=== PATIENT | male | born 1980 | race Caucasian/White ===

== ENCOUNTER 2021-02-05 11:30 | Emergency (ER) | payer SELFPAY ==
[2021-02-05] MEDS ORDERED: Sodium Chloride 0.9% 10 ML Syringe FLUSH PRN (11:50)
[2021-02-05] MEDS ORDERED: Thiamine 200 MG/2 ML MDV IVPUSH ONE (11:50)
[2021-02-05] MEDS ORDERED: Ondansetron 4 MG/2 ML SDV IVPUSH ONE (11:51)
[2021-02-05] MEDS ORDERED: Lactated Ringers 1,000 ML IV ONE (11:51)
--- NOTE | 2021-02-05 11:59 | EDM.PDOC ---
ED HPI GENERAL MEDICAL PROBLEM - General Chief Complaint: Abdominal Pain Stated Complaint: need fluids, N&V Time Seen by Provider: 02/05/21 11:41 Source of Information: Reports: Patient - History of Present Illness INITIAL COMMENTS - FREE TEXT/NARRATIVE: Gerson is a 40 y/o male who presents himself to the ER reporting that he drove here from his home. He has been drinking hard liquor ([employer] Pedra[place]) heavily for the last 5 days. His last drink was at 0700 this AM. He then started drinking an oral Pedialyte solution that his fiance had gotten for him. He is nauseated and doesn't feel well. He has gone a heavy drinking binge in the past and had to go through withdrawal. He wants to stop drinking. He has not really eaten, stools slightly loose. - Related Data Allergies Allergy/AdvReac Type Severity Reaction Status Date / Time No Known Allergies Allergy Verified 02/05/21 11:31 Home Meds: Home Meds Ondansetron [Zofran ODT] 4 mg PO Q6H PRN #20 tab.dis 02/05/21 [Rx] hydrOXYzine pamoate [Hydroxyzine Pamoate] 50 mg PO Q6H PRN #30 capsule 02/05/21 [Rx] Past Medical History HEENT History: Reports: Impaired Vision Psychiatric History: Reports: Anxiety - Past Surgical History HEENT Surgical History: Reports: Oral Surgery Social & Family History - Tobacco Use Tobacco Use Status *Q: Current Every Day Tobacco User Years of Tobacco use: 20 Packs/Tins Daily: 1 - Caffeine Use Caffeine Use: Reports: Coffee - Alcohol Use Date of Last Drink: 02/05/21 Time of Last Drink: 07:00 Review of Systems - Review of Systems Review Of Systems: See Below Constitutional: Reports: Weakness Eyes: Reports: No Symptoms Ears: Reports: No Symptoms Nose: Reports: No Symptoms Mouth/Throat: Reports: No Symptoms Respiratory: Reports: No Symptoms Cardiovascular: Reports: No Symptoms GI/Abdominal: Reports: Decreased Appetite, Diarrhea, Nausea Genitourinary: Reports: No Symptoms Musculoskeletal: Reports: No Symptoms Skin: Reports: No Symptoms Neurological: Reports: Dizziness Psychiatric: Reports: Depression ED EXAM, GENERAL - Physical Exam Exam: See Below General Appearance: Alert, WD/WN (Adult male, ambualtes into the ER per his own power.) Eye Exam: Bilateral Eye: PERRL Ears: Normal External Exam, Normal Canal, Hearing Grossly Normal, Normal TMs Nose: Normal Inspection, Normal Mucosa Throat/Mouth: Normal Inspection, Normal Lips, Normal Oropharynx Head: Atraumatic, Normocephalic Neck: Supple Respiratory/Chest: No Respiratory Distress, Lungs Clear, Chest Non-Tender Cardiovascular: Normal Peripheral Pulses, Regular Rate, Rhythm GI/Abdominal: Normal Bowel Sounds, Soft, Tender (slight over gastric region) Rectal (Males) Exam: Deferred Back Exam: Normal Inspection Extremities: Normal Inspection, Normal Range of Motion, No Pedal Edema, Normal Capillary Refill Neurological: Alert, Oriented, CN II-XII Intact, Normal Cognition, Normal Gait Psychiatric: Depressed Mood Skin Exam: Warm, Dry, Intact, Normal Color Lymphatic: No Adenopathy #1 Interpretation EKG Date: 02/05/21 Time: 12:22 Rhythm: NSR Rate (Beats/Min): 70 [place]: Normal P-Wave: Present QRS: Normal ST-T: Normal QT: Normal Comparison: NA - No Prior EKG EKG Interpretation Comments: Normal Sinus Rhythm Course - Vital Signs Text/Narrative:: 1141 The patient was seen by the LABOR RELATIONS ANALYST. Labs ordered. He was given a liter of LR, Zofran 4mg IVP, and Thiamine 100mg IVP. 1250 Labs reviewed. CBC Hgb=17.5, Hct=50.8; CMP umhxvov=196, AST=42; Amylase=35, Fnhjbd=386: ETOH=0.159. UA/UDS pending. IV fluids infusing, feels very anxious and shaky. Will given Hydroxyzine pamoate 100mg po x 1 and see if that helps. Would rather avoid benzos since patient still intoxicated. 1410 Patient feeling much better after Hydroxyzine and fluids. UA and UDS reviewed. LABOR RELATIONS ANALYST discussed alcohol rehab with patient and warning sx of Alcohol Withdrawal. He was sent home Zofran and Hydroxyzine. He left the ER in stable condition after written instructions were given. Last Recorded V/S: Last Vital Signs Temp 36.8 C 02/05/21 11:32 Pulse 75 02/05/21 11:32 Resp 20 02/05/21 11:32 BP 131/71 02/05/21 11:32 Pulse Ox 97 02/05/21 11:32 - Orders/Labs/Meds Orders: Active Orders 24 hr Category Date Time Status EKG Documentation Completion [RC] ASDIRECTED Care 02/05/21 11:50 Active DRUG SCREEN, URINE [URCHEM] Stat Lab 02/05/21 11:49 Ordered UA W/MICROSCOPIC [URIN] Stat Lab 02/05/21 11:49 Results Sodium Chloride 0.9% [Saline Flush] Med 02/05/21 11:50 Active 10 ml FLUSH ASDIRECTED PRN Saline Lock Insert [OM.PC] Stat Oth 02/05/21 11:49 Ordered Medication Orders Sodium Chloride (Sodium Chloride 0.9% 10 Ml Syringe) 10 ml FLUSH ASDIRECTED PRN PRN Reason: Keep Vein Open Labs: Laboratory Tests 02/05/21 02/05/21 02/05/21 Range/Units 11:40 11:40 11:49 WBC 8.6 (4.0-10.2) K/uL RBC 5.59 H (4.33-5.41) M/uL Hgb 17.5 H (13.1-16.8) g/dL Hct 50.8 H (39.0-49.0) % MCV 90.9 (84.0-98.0) fL MCH 31.3 (28.2-33.3) pg MCHC 34.4 (31.7-36.0) g/dL RDW 13.0 (11.2-14.1) % Plt Count 224 (150-350) K/uL Neut % (Auto) 72.0 (45.0-80.0) % Lymph % (Auto) 20.5 (10.0-50.0) % [place] % (Auto) 6.2 (2.0-14.0) % Eos % (Auto) 0.5 (0.0-5.0) % Baso % (Auto) 0.8 (0.0-2.0) % Neut # (Auto) 6.19 (1.40-7.00) K/uL Lymph # (Auto) 1.76 (0.50-3.50) K/uL [place] # (Auto) 0.53 (0.00-1.00) K/uL Eos # (Auto) 0.04 (0.00-0.50) K/uL Baso # (Auto) 0.07 (0.00-0.20) K/uL Sodium 143 (136-145) mmol/L Potassium 4.0 (3.5-5.1) mmol/L Chloride 103 (98-107) mmol/L Carbon Dioxide 28.0 (21.0-32.0) mmol/L Anion Gap 12.0 (7-15) meq/L BUN 12 (7-18) mg/dL Creatinine 1.11 (0.51-1.17) mg/dL Est Cr Clr Drug Dosing TNP Estimated GFR (MDRD) > 60 mL/min Glucose 128 H (70-99) mg/dL Calcium 8.5 (8.5-10.1) mg/dL Magnesium 1.8 (1.8-2.4) mg/dL Total Bilirubin 0.4 (0.2-1.0) mg/dL AST 42 H (15-37) U/L ALT 50 (12-78) U/L Alkaline Phosphatase 129 H (46-116) IU/L Total Protein 7.4 (6.4-8.2) g/dL Albumin 4.2 (3.4-5.0) g/dL Amylase 35 (25-115) U/L Lipase 148 (73-393) U/L Urine Color Dark yellow Urine Appearance Slightly cloudy Urine pH 6.0 (5.0-9.0) Ur Specific [place] >= 1.030 (1.005-1.030) Urine Protein 100 H (NEGATIVE) mg/dL Urine Glucose (UA) Negative (NEGATIVE) mg/dL Urine Ketones 40 H (NEGATIVE) mg/dL Urine Occult Blood Trace-lysed H (NEGATIVE) Urine Nitrite Negative (NEGATIVE) Urine Bilirubin Negative (NEGATIVE) Urine Urobilinogen 0.2 (0.2-1.0) E.U./dL Ur Leukocyte Esterase Negative (NEGATIVE) Ethyl Alcohol 0.159 H (0.000-0.080) g/dL Meds: Medications Generic Name Dose Route Start Last Admin Trade Name Freq PRN Reason Stop Dose Admin Sodium Chloride 10 ml 02/05/21 11:50 Sodium Chloride 0.9% 10 Ml Syringe FLUSH ASDIRECTED PRN Keep Vein Open Discontinued Medications Generic Name Dose Route Start Last Admin Trade Name Freq PRN Reason Stop Dose Admin Hydroxyzine Pamoate 100 mg 02/05/21 12:52 02/05/21 12:59 Hydroxyzine Pamoate 25 Mg Cap PO 02/05/21 12:53 100 mg ONETIME ONE Administration Lactated Ringer's 1,000 mls @ 999 mls/hr 02/05/21 11:51 02/05/21 11:58 Ringers, Lactated IV 02/05/21 12:51 999 mls/hr .BOLUS ONE Administration Sodium Chloride 1,000 mls @ 999 mls/hr 02/05/21 12:52 02/05/21 13:05 Normal Saline IV 02/05/21 13:52 999 mls/hr .BOLUS ONE Administration Ondansetron HCl 4 mg 02/05/21 11:51 02/05/21 11:57 Ondansetron 4 Mg/2 Ml Sdv IVPUSH 02/05/21 11:52 4 mg ONETIME ONE Administration Thiamine HCl 100 mg 02/05/21 11:50 02/05/21 11:57 Thiamine 200 Mg/2 Ml Mdv IVPUSH 02/05/21 11:51 100 mg ONETIME ONE Administration Departure - Departure Time of Disposition: 14:21 Disposition: Home, Self-Care 01 Condition: Good Clinical Impression: Cocaine use Acute alcoholic intoxication in alcoholism (blood level 0.08-0.29) Qualifiers: Complication of substance-induced condition: uncomplicated Qualified Code(s): F10.220 - Alcohol dependence with intoxication, uncomplicated - Discharge Information *PRESCRIPTION DRUG MONITORING PROGRAM REVIEWED*: No *COPY OF PRESCRIPTION DRUG MONITORING REPORT IN PATIENT MORRIS: No Prescriptions: hydrOXYzine pamoate [Hydroxyzine Pamoate] 50 mg PO Q6H PRN #30 capsule PRN Reason: Anxiety Ondansetron [Zofran ODT] 4 mg PO Q6H PRN #20 tab.dis PRN Reason: Nausea Instructions: Alcohol Abuse and Dependence Information, Adult Referrals: PCP,None [Primary Care Provider] - Forms: ED Department Discharge Additional Instructions: -STOP DRINKING ALCOHOL. If you start drinking again, the process of getting sober and withdrawing starts over. -STOP using Cocaine. -Hydroxyzine 50mg oral every 6 hours as needed for anxiety #30(Rx) -Ondanestron ODT 4mg oral every 6 hours as needed for nasuea #20(Rx) -Consider getting into rehab to stop drinking -Eat a hearty meal. Avoid spicy, greasy foods that may irritate your stomach even more. -Stay well hydrated. -Follow up with your Primary Care Provider for further issues when you are sober. -Return as needed to the ER for any other concerns Sepsis Event Note (ED) - Focused Exam Vital Signs: Vital Signs Temp Pulse Resp BP Pulse Ox 02/05/21 11:32 36.8 C 75 20 131/71 97 - Problem List & Annotations (1) Acute alcoholic intoxication in alcoholism (blood level 0.08-0.29) SNOMED Code(s): 143677398 Code(s): F10.229 - ALCOHOL DEPENDENCE WITH INTOXICATION, UNSPECIFIED Status: Acute Current Visit: Yes Annotation/Comment:: -ETOH=0.159, currently intoxicated -Hydroxyzine and Zofran to be sent home for sx management -Discussed alcohol withdrawal with patient Qualifiers: Complication of substance-induced condition: uncomplicated Qualified Code(s): F10.220 - Alcohol dependence with intoxication, uncomplicated (2) Cocaine use SNOMED Code(s): 733980297 Code(s): F14.90 - COCAINE USE, UNSPECIFIED, UNCOMPLICATED Status: Acute Current Visit: Yes Annotation/Comment:: -UDS positive for Cocaine, results reviewed following discharge but suspect this factor exacerbated the alcohol sx - My Orders Last 24 Hours: My Active Orders 02/05/21 11:49 DRUG SCREEN, URINE [URCHEM] Stat UA W/MICROSCOPIC [URIN] Stat Saline Lock Insert [OM.PC] Stat 02/05/21 11:50 EKG Documentation Completion [RC] ASDIRECTED Sodium Chloride 0.9% [Saline Flush] 10 ml FLUSH ASDIRECTED PRN - Assessment/Plan Last 24 Hours: My Active Orders 02/05/21 11:49 DRUG SCREEN, URINE [URCHEM] Stat UA W/MICROSCOPIC [URIN] Stat Saline Lock Insert [OM.PC] Stat 02/05/21 11:50 EKG Documentation Completion [RC] ASDIRECTED Sodium Chloride 0.9% [Saline Flush] 10 ml FLUSH ASDIRECTED PRN Plan: See below
[2021-02-05 12:18] LABS: CHLORIDE,CL 103 mmol/L (98-107); SODIUM,NA 143 mmol/L (136-145)
[2021-02-05] MEDS ORDERED: Sodium Chloride 0.9% 1,000 ML IV ONE (12:52)
[2021-02-05] MEDS ORDERED: hydrOXYzine Pamoate 25 MG Cap PO ONE (12:52)
[2021-02-05 14:06] LABS: BARBITURATE SCREEN,URINE NEGATIVE (NEGATIVE); BENZODIAZEPINES SCREEN,URINE NEGATIVE (NEGATIVE); EDDP,URINE SCREEN NEGATIVE (NEGATIVE); TCA SCREEN,URINE NEGATIVE (NEGATIVE); THC SCREEN,URINE 50 NG/ML NEGATIVE (NEGATIVE)
[2021-02-05 14:28] LABS: BUPRENORPHINE SCREEN,URINE NEGATIVE (NEGATIVE)
== END 2021-02-05 14:35 | disposition home or self-care (01) ==
LOC: LL.ED 11:30
DX: F10.220 Alcohol dependence with intoxication, uncomplicated (principal); F14.90 Cocaine use, unspecified, uncomplicated; Y90.6 Blood alcohol level of 120-199 mg/100 ml; Z72.0 Tobacco use
CPT/HCPCS: 36415; 80053; 80305-QW; 80307; 81001; 82150; 83690; 83735; 85025; 93005; 93010; 96374; 96375; 99283; 99284-25; J2405; J3411; J7030; J7120; Q0177

== ENCOUNTER 2021-03-06 17:55 | Emergency (ER) | payer SELFPAY ==
[2021-03-06] MEDS ORDERED: Pantoprazole 40 MG in Sodium Chloride 0.9% 100 ML IV ONE (18:19)
[2021-03-06] MEDS ORDERED: Promethazine 25 MG/ML SDV IM ONE (18:19)
[2021-03-06] MEDS ORDERED: Pantoprazole 40 MG Vial ONE (18:21)
[2021-03-06] MEDS ORDERED: Promethazine 25 MG/ML SDV ONE (18:21)
[2021-03-06] MEDS ORDERED: Pantoprazole 40 MG Vial IVPUSH ONE (18:33)
[2021-03-06] MEDS ORDERED: Sodium Chloride 0.9% 1,000 ML IV ONE ×2 (18:34→19:30)
[2021-03-06] MEDS ORDERED: Sodium Chloride 0.9% 10 ML Syringe FLUSH PRN (18:34)
[2021-03-06] MEDS ORDERED: GI Cocktail Oral Solution 30 ML PO ONE (18:39)
[2021-03-06 18:46] LABS: ANION GAP 22.7 meq/L (7-15); CHLORIDE,CL 103 mmol/L (98-107); SODIUM,NA 142 mmol/L (136-145)
--- NOTE | 2021-03-06 18:59 | EDM.PDOC ---
ED HPI GENERAL MEDICAL PROBLEM - General Chief Complaint: General Stated Complaint: abdominal pain, vomiting Time Seen by Provider: 03/06/21 18:15 Source of Information: Reports: Patient History Limitations: Reports: No Limitations - History of Present Illness INITIAL COMMENTS - FREE TEXT/NARRATIVE: Patient comes in for assistance for nausea/vomiting/epigastric pain related to acute ETOH intoxication yesterday. Has history of ETOH abuse that started in his 20s. Has not had any alcohol for an entire month per self report. Reports he had several pints of hard liquor last evening in total. Is trying to stop his alcohol use. Has not had any inpatient treatment or outpatient evaluations for ETOH use. Family history of ETOH/father. Has not reached out to AA. Denies blood in emesis. No bowel movements today as of yet. Was trying to drink Pedialyte at home but felt gradually worse throughout day. No other acute changes. abdominal pain Pain Score (Numeric/FACES): 8 - Related Data Allergies Allergy/AdvReac Type Severity Reaction Status Date / Time No Known Allergies Allergy Verified 03/06/21 17:56 Home Meds: Home Meds hydrOXYzine pamoate [Hydroxyzine Pamoate] 50 mg PO Q6H PRN #30 capsule 02/05/21 [Rx] Omeprazole Magnesium [Prilosec Otc] 20 mg PO DAILY 03/06/21 [History] ondansetron HCL [Zofran] 4 mg PO Q4HR PRN 03/06/21 [History] Past Medical History HEENT History: Reports: Impaired Vision Psychiatric History: Reports: Addiction (ETOH), Anxiety - Past Surgical History HEENT Surgical History: Reports: Oral Surgery Social & Family History - Tobacco Use Tobacco Use Status *Q: Current Every Day Tobacco User - Caffeine Use Caffeine Use: Reports: Coffee - Alcohol Use Alcohol Use History: Yes Alcohol Use Comment: Reports zero use of ETOH for an entire month up until yesterday - Recreational Drug Use Recreational Drug Use: No ED ROS GENERAL - Review of Systems Review Of Systems: Comprehensive ROS is negative, except as noted in HPI. ED EXAM, GENERAL - Physical Exam Exam: See Below Exam Limited By: No Limitations General Appearance: Moderate Distress Eye Exam: Bilateral Eye: EOMI, PERRL Ears: Normal External Exam, Normal Canal, Hearing Grossly Normal Nose: No: Nasal Deformity, Nasal Swelling, Nasal Drainage Throat/Mouth: Normal Lips, Normal Voice, No Airway Compromise Head: Atraumatic, Normocephalic Neck: Normal Inspection, Supple, Non-Tender, Full Range of Motion Respiratory/Chest: No Respiratory Distress, Lungs Clear, Normal Breath Sounds, No Accessory Muscle Use, Chest Non-Tender Cardiovascular: Regular Rate, Rhythm, No Edema, No Murmur GI/Abdominal: Soft, No Distention, Tender (epigastric area) (Male) Exam: Deferred Rectal (Males) Exam: Deferred Back Exam: No: CVA Tenderness (L), CVA Tenderness (R), Muscle Spasm Extremities: Normal Range of Motion, Non-Tender, No Pedal Edema, Slow Capillary Refill Neurological: Alert, Oriented, Normal Cognition, Normal Gait, No Motor/Sensory Deficits Psychiatric: Anxious Skin Exam: Warm, Dry, Intact, Normal Color, No Rash Course - Vital Signs Last Recorded V/S: Last Vital Signs Temp 36.3 C 03/06/21 21:50 Pulse 63 03/06/21 21:50 Resp 16 03/06/21 21:50 BP 140/74 03/06/21 21:50 Pulse Ox 97 03/06/21 21:50 - Orders/Labs/Meds Orders: Active Orders 24 hr Category Date Time Status Saline Lock Insert [OM.PC] Routine Oth 03/06/21 18:34 Ordered Labs: Laboratory Tests 03/06/21 03/06/21 03/06/21 Range/Units 18:20 18:20 18:20 WBC 9.4 (4.0-10.2) K/uL RBC 5.99 H (4.33-5.41) M/uL Hgb 18.5 H* (13.1-16.8) g/dL Hct 51.9 H (39.0-49.0) % MCV 86.6 D (84.0-98.0) fL MCH 30.9 (28.2-33.3) pg MCHC 35.6 (31.7-36.0) g/dL RDW 12.3 (11.2-14.1) % Plt Count 232 (150-350) K/uL Neut % (Auto) 65.9 (45.0-80.0) % Lymph % (Auto) 24.8 (10.0-50.0) % [place] % (Auto) 7.7 (2.0-14.0) % Eos % (Auto) 1.0 (0.0-5.0) % Baso % (Auto) 0.6 (0.0-2.0) % Neut # (Auto) 6.16 (1.40-7.00) K/uL Lymph # (Auto) 2.32 (0.50-3.50) K/uL [place] # (Auto) 0.72 (0.00-1.00) K/uL Eos # (Auto) 0.09 (0.00-0.50) K/uL Baso # (Auto) 0.06 (0.00-0.20) K/uL Sodium 142 (136-145) mmol/L Potassium 3.9 (3.5-5.1) mmol/L Chloride 103 (98-107) mmol/L Carbon Dioxide 20.2 L (21.0-32.0) mmol/L Anion Gap 22.7 H (7-15) meq/L BUN 21 H (7-18) mg/dL Creatinine 1.09 (0.51-1.17) mg/dL Est Cr Clr Drug Dosing TNP Estimated GFR (MDRD) > 60 mL/min Glucose 91 (70-99) mg/dL Lactic Acid 2.8 H (0.4-2.0) mmol/L Calcium 8.6 (8.5-10.1) mg/dL Total Bilirubin 0.4 (0.2-1.0) mg/dL AST 50 H (15-37) U/L ALT 104 H (12-78) U/L Alkaline Phosphatase 104 (46-116) IU/L Total Protein 7.2 (6.4-8.2) g/dL Albumin 3.9 (3.4-5.0) g/dL Urine Opiates Screen (NEGATIVE) Ur Buprenorphine Scrn (NEGATIVE) Ur Oxycodone Screen (NEGATIVE) Ur EDDP (Meth Metab) (NEGATIVE) Ur Barbiturates Screen (NEGATIVE) Ur Tricyclics Screen (NEGATIVE) Ur Amphetamine Screen (NEGATIVE) U Methamphetamines Scrn (NEGATIVE) Urine MDMA Screen (NEGATIVE) U Benzodiazepines Scrn (NEGATIVE) U Cocaine Metab Screen (NEGATIVE) U Marijuana (THC) Screen (NEGATIVE) Ethyl Alcohol 0.020 (0.000-0.080) g/dL 03/06/21 Range/Units 20:45 WBC (4.0-10.2) K/uL RBC (4.33-5.41) M/uL Hgb (13.1-16.8) g/dL Hct (39.0-49.0) % MCV (84.0-98.0) fL MCH (28.2-33.3) pg MCHC (31.7-36.0) g/dL RDW (11.2-14.1) % Plt Count (150-350) K/uL Neut % (Auto) (45.0-80.0) % Lymph % (Auto) (10.0-50.0) % [place] % (Auto) (2.0-14.0) % Eos % (Auto) (0.0-5.0) % Baso % (Auto) (0.0-2.0) % Neut # (Auto) (1.40-7.00) K/uL Lymph # (Auto) (0.50-3.50) K/uL [place] # (Auto) (0.00-1.00) K/uL Eos # (Auto) (0.00-0.50) K/uL Baso # (Auto) (0.00-0.20) K/uL Sodium (136-145) mmol/L Potassium (3.5-5.1) mmol/L Chloride (98-107) mmol/L Carbon Dioxide (21.0-32.0) mmol/L Anion Gap (7-15) meq/L BUN (7-18) mg/dL Creatinine (0.51-1.17) mg/dL Est Cr Clr Drug Dosing Estimated GFR (MDRD) mL/min Glucose (70-99) mg/dL Lactic Acid (0.4-2.0) mmol/L Calcium (8.5-10.1) mg/dL Total Bilirubin (0.2-1.0) mg/dL AST (15-37) U/L ALT (12-78) U/L Alkaline Phosphatase (46-116) IU/L Total Protein (6.4-8.2) g/dL Albumin (3.4-5.0) g/dL Urine Opiates Screen Negative (NEGATIVE) Ur Buprenorphine Scrn Negative (NEGATIVE) Ur Oxycodone Screen Negative (NEGATIVE) Ur EDDP (Meth Metab) Negative (NEGATIVE) Ur Barbiturates Screen Negative (NEGATIVE) Ur Tricyclics Screen Negative (NEGATIVE) Ur Amphetamine Screen Negative (NEGATIVE) U Methamphetamines Scrn Negative (NEGATIVE) Urine MDMA Screen Positive H (NEGATIVE) U Benzodiazepines Scrn Negative (NEGATIVE) U Cocaine Metab Screen Negative (NEGATIVE) U Marijuana (THC) Screen Negative (NEGATIVE) Ethyl Alcohol (0.000-0.080) g/dL Meds: Medications Discontinued Medications Generic Name Dose Route Start Last Admin Trade Name Freq PRN Reason Stop Dose Admin Al Hydroxide/Mg Hydroxide 30 ml 03/06/21 18:39 03/06/21 19:21 Gi Cocktail Oral Solution 30 Ml PO 03/06/21 18:40 30 ml ONETIME ONE Administration Pantoprazole Sodium 40 mg/ 100 mls @ 200 mls/hr 03/06/21 18:19 03/06/21 18:33 Sodium Chloride IV 03/06/21 18:48 Not Given ONETIME ONE Sodium Chloride 1,000 mls @ 999 mls/hr 03/06/21 18:34 03/06/21 19:21 Normal Saline IV 03/06/21 19:34 999 mls/hr .BOLUS ONE Administration Sodium Chloride 1,000 mls @ 999 mls/hr 03/06/21 19:30 03/06/21 19:22 Normal Saline IV 03/06/21 20:30 999 mls/hr .BOLUS ONE Administration Ondansetron HCl 4 mg 03/06/21 20:30 03/06/21 19:22 Ondansetron 4 Mg/2 Ml Sdv IVPUSH 03/06/21 20:31 4 mg ONETIME ONE Administration Ondansetron HCl 4 mg 03/06/21 20:38 03/06/21 20:42 Ondansetron 4 Mg/2 Ml Sdv IVPUSH 03/06/21 20:39 4 mg ONETIME ONE Administration Pantoprazole Sodium Confirm 03/06/21 18:21 03/06/21 18:36 Pantoprazole 40 Mg Vial Administered 03/06/21 18:22 Not Given Dose 40 mg .ROUTE .STK-MED ONE Pantoprazole Sodium 40 mg 03/06/21 18:33 03/06/21 18:36 Pantoprazole 40 Mg Vial IVPUSH 03/06/21 18:34 40 mg ONETIME ONE Administration Promethazine HCl 25 mg 03/06/21 18:19 03/06/21 18:36 Promethazine 25 Mg/Ml Sdv IM 03/06/21 18:20 25 mg ONETIME ONE Administration Promethazine HCl Confirm 03/06/21 18:21 03/06/21 18:36 Promethazine 25 Mg/Ml Sdv Administered 03/06/21 18:22 Not Given Dose 25 mg .ROUTE .STK-MED ONE Sodium Chloride 10 ml 03/06/21 18:34 03/06/21 20:42 Sodium Chloride 0.9% 10 Ml Syringe FLUSH 10 ml ASDIRECTED PRN Administration Keep Vein Open Thiamine HCl 100 mg 03/06/21 20:37 03/06/21 20:41 Thiamine 200 Mg/2 Ml Mdv IVPUSH 03/06/21 20:38 100 mg ONETIME ONE Administration - Re-Assessments/Exams Free Text/Narrative Re-Assessment/Exam: 03/06/21 19:03 Patient received IM Phenergan. 2 L of IV NS ordered to be given over 2 hours. GI cocktail ordered. Hgb elevated at 18.8. Suspect combo of dehydration and history of smoking leading to elevation BUN 21 AST 50 and ALT 104 ETOH 0.02 Patient reports he is feeling much better at this time. Plan is to infuse two liters of fluid and give Zofran once second liter is finished. Patient can be discharged home at that time if he continues to feel better. Long visit with patient concerning ETOH use and getting help via AA and ETOH counselor/treatment referral. Patient is interested in getting assistance. Will have case management contact patient tomorrow and help get him connected with assistance. Precautions reviewed. To follow up as needed if any problems/worsening issues develop. Otherwise should follow up with a primary provider in the area that can assist him with health maintenance and any other ongoing concerns. 03/06/21 22:33 UA Drug screen + for MDMA Patient felt much improved at time of discharge. Departure - Departure Time of Disposition: 20:45 Disposition: Home, Self-Care 01 Clinical Impression: ETOH abuse, Liver enzyme elevation, Dehydration N&V (nausea and vomiting) Qualifiers: Vomiting type: unspecified Vomiting Intractability: non-intractable Qualified Code(s): R11.2 - Nausea with vomiting, unspecified - Discharge Information *PRESCRIPTION DRUG MONITORING PROGRAM REVIEWED*: Not Applicable *COPY OF PRESCRIPTION DRUG MONITORING REPORT IN PATIENT MORRIS: Not Applicable Instructions: Alcohol Use Disorder, Nausea and Vomiting, Adult, [id number], Dehydration, Adult, [id number] Referrals: Gita Felix NP [Primary Care Provider] - Forms: ED Department Discharge Additional Instructions: You NEED to make contact with AA and a substance abuse counselor so you can get pointed in correct direction and get proper support. You may need to consider inpatient vs outpatient treatment. Our case mgr will contact you and try to assist if she can. Avoid any and all alcohol use. Stay hydrated/rest. Advance diet as tolerated tomorrow. Get established with a local clinic for ongoing medical care. Follow up in ER if you have sudden problems, such as vomiting blood. Sepsis Event Note (ED) - Focused Exam Vital Signs: Vital Signs Temp Pulse Resp BP Pulse Ox 03/06/21 21:50 36.3 C 63 16 140/74 97 03/06/21 17:55 36.1 C 60 20 143/86 H 98 - My Orders Last 24 Hours: My Active Orders 03/06/21 18:34 Saline Lock Insert [OM.PC] Routine - Assessment/Plan Last 24 Hours: My Active Orders 03/06/21 18:34 Saline Lock Insert [OM.PC] Routine
[2021-03-06] MEDS ORDERED: Thiamine 100 MG in Sodium Chloride 0.9% 100 ML IV ONE (19:18)
[2021-03-06] MEDS ORDERED: Ondansetron 4 MG/2 ML SDV IVPUSH ONE ×2 (20:30→20:38)
[2021-03-06] MEDS ORDERED: Thiamine 200 MG/2 ML MDV IVPUSH ONE (20:37)
[2021-03-06 22:13] LABS: BARBITURATE SCREEN,URINE NEGATIVE (NEGATIVE); BENZODIAZEPINES SCREEN,URINE NEGATIVE (NEGATIVE); EDDP,URINE SCREEN NEGATIVE (NEGATIVE); TCA SCREEN,URINE NEGATIVE (NEGATIVE); THC SCREEN,URINE 50 NG/ML NEGATIVE (NEGATIVE)
[2021-03-06 22:16] LABS: BUPRENORPHINE SCREEN,URINE NEGATIVE (NEGATIVE)
== END 2021-03-06 20:58 | disposition home or self-care (01) ==
LOC: LL.ED 17:55
DX: R11.2 Nausea with vomiting, unspecified (principal); R10.13 Epigastric pain; E86.0 Dehydration; F10.10 Alcohol abuse, uncomplicated; R74.8 Abnormal levels of other serum enzymes; Y90.5 Blood alcohol level of 100-119 mg/100 ml
CPT/HCPCS: 36415; 80053; 80305; 80307; 83605; 85025; 96372; 96374; 96375; 96376; 99284; A9270; C9113; J2405; J2550; J3411; J7030

== ENCOUNTER 2022-07-28 06:14 | Emergency (ER) | payer BC, OTHER ==
[2022-07-28] MEDS ORDERED: LORazepam 2 MG/ML SDV IVPUSH ONE (06:27)
[2022-07-28] MEDS ORDERED: Sodium Chloride 0.9% 10 ML Syringe FLUSH PRN (06:27)
[2022-07-28] MEDS ORDERED: Sodium Chloride 0.9% 1,000 ML IV ONE ×2 (06:28→07:32)
[2022-07-28] MEDS ORDERED: Ondansetron 4 MG/2 ML SDV IVPUSH ONE (06:29)
[2022-07-28] MEDS ORDERED: Thiamine 100 MG in Sodium Chloride 0.9% 100 ML IV ONE (06:58)
[2022-07-28] MEDS ORDERED: Promethazine 25 MG/ML SDV IM ONE (06:59)
[2022-07-28 07:14] LABS: ANION GAP 14.5 meq/L (7-15); CHLORIDE,CL 101 mmol/L (98-107); SODIUM,NA 138 mmol/L (136-145)
[2022-07-28 07:18] LABS: ESTIMATED GFR 98 mL/min (>=60)
[2022-07-28 07:50] LABS: BARBITURATE SCREEN,URINE NEGATIVE (NEGATIVE); BENZODIAZEPINES SCREEN,URINE NEGATIVE (NEGATIVE); EDDP,URINE SCREEN NEGATIVE (NEGATIVE); TCA SCREEN,URINE NEGATIVE (NEGATIVE); THC SCREEN,URINE 50 NG/ML NEGATIVE (NEGATIVE)
[2022-07-28 07:51] LABS: BUPRENORPHINE SCREEN,URINE NEGATIVE (NEGATIVE)
[2022-07-28] MEDS ORDERED: Lactated Ringers 1,000 ML IV ONE (10:30)
[2022-07-28 11:51] VITALS: BP 125/83; PULSE 64
[2022-07-28] MEDS ORDERED: LORazepam 0.5 MG Tab PO ONE (12:30)
== END 2022-07-28 12:50 | disposition home or self-care (01) ==
LOC: LL.ED 06:14
DX: F11.23 Opioid dependence with withdrawal (principal); F10.10 Alcohol abuse, uncomplicated; Z72.0 Tobacco use
CPT/HCPCS: 36415; 71045; 80053; 80143; 80305-QW; 80307; 81001; 83605; 83735; 85025; 93005; 93010; 96361; 96365; 96375; 99284; 99284-25; A9270-GY; J2060; J2405; J3411; J3475; J3490; J7030; J7120

== ENCOUNTER 2022-08-09 08:33 | Emergency (ER) | payer BC ==
[2022-08-09] MEDS ORDERED: Ondansetron 4 MG/2 ML SDV IVPUSH PRN (08:45)
[2022-08-09] MEDS ORDERED: Sodium Chloride 0.9% 10 ML Syringe FLUSH PRN (08:45)
[2022-08-09] MEDS ORDERED: Sodium Chloride 0.9% 1,000 ML IV ONE ×2 (08:46→10:00)
[2022-08-09 09:20] LABS: CHLORIDE,CL 102 mmol/L (98-107); SODIUM,NA 140 mmol/L (136-145)
[2022-08-09 09:21] LABS: ESTIMATED GFR 95 mL/min (>=60)
[2022-08-09 10:20] LABS: BARBITURATE SCREEN,URINE NEGATIVE (NEGATIVE); BENZODIAZEPINES SCREEN,URINE NEGATIVE (NEGATIVE); EDDP,URINE SCREEN NEGATIVE (NEGATIVE); TCA SCREEN,URINE NEGATIVE (NEGATIVE); THC SCREEN,URINE 50 NG/ML NEGATIVE (NEGATIVE)
[2022-08-09 10:23] LABS: BUPRENORPHINE SCREEN,URINE NEGATIVE (NEGATIVE)
[2022-08-09 10:24] LABS: CORONAVIRUS COVID-19 NAA NEGATIVE (NEGATIVE); RESPIRATORY SYNCYTIAL VIR NAA NEGATIVE (NEGATIVE)
[2022-08-09] MEDS ORDERED: Take Home: Ondansetron 4 MG Tab.DIS, 5 Tab Pack PO ONE (12:00)
== END 2022-08-09 12:15 | disposition home or self-care (01) ==
LOC: SUPCPDRO 08:33 → LL.ED 08:33
DX: F10.930 Alcohol use, unspecified with withdrawal, uncomplicated (principal); F17.210 Nicotine dependence, cigarettes, uncomplicated; Z20.822 Contact with and (suspected) exposure to COVID-19; Y90.0 Blood alcohol level of less than 20 mg/100 ml
CPT/HCPCS: 0241U; 36415; 71046; 80053; 80305-QW; 80307; 81001; 83690; 83735; 85025; 87086; 93005; 96361; 96374; 99285-25; J2405; J7030; Q0162

== ENCOUNTER 2023-01-03 19:02 | Emergency (ER) | payer BC ==
[2023-01-03 19:37] LABS: BASOPHILS ABSOLUTE AUTO 0.07 K/uL (0.00-0.20); BASOPHILS PERCENT AUTO 0.7 % (0.0-2.0); EOSINOPHILS ABSOLUTE AUTO 0.12 K/uL (0.00-0.50); EOSINOPHILS PERCENT AUTO 1.1 % (0.0-5.0); HEMATOCRIT 47.6 % (39.0-49.0); HEMOGLOBIN 16.2 g/dL (13.1-16.8); LYMPHOCYTES ABSOLUTE AUTO 2.27 K/uL (0.50-3.50); LYMPHOCYTES PERCENT AUTO 21.3 % (10.0-50.0); MEAN CORPUSCULAR HEMOGLOBIN 30.9 pg (28.2-33.3); MEAN CORPUSCULAR VOLUME 90.8 fL (84.0-98.0); MONOCYTES ABSOLUTE AUTO 0.68 K/uL (0.00-1.00); MONOCYTES PERCENT AUTO 6.4 % (2.0-14.0); NEUTROPHILS PERCENT AUTO 70.5 % (45.0-80.0); PLATELET COUNT,PLT 210 K/uL (150-350); RED BLOOD CELL COUNT 5.24 M/uL (4.33-5.41); RED CELL DISTRIBUTION WIDTH 12.9 % (11.2-14.1); WHITE BLOOD CELL COUNT,WBC 10.6 K/uL (4.0-10.2)
[2023-01-03] MEDS: Sodium Chloride 0.9% 1,000 ML IV ONE (19:52)
[2023-01-03] MEDS: Ondansetron 4 MG/2 ML SDV IVPUSH PRN (19:56)
[2023-01-03 19:58] LABS: ALBUMIN 4.1 g/dL (3.4-5.0); BILIRUBIN TOTAL 0.5 mg/dL (0.2-1.0); CALCIUM 8.5 mg/dL (8.5-10.1); CREATININE 1.06 mg/dL (0.51-1.17); EST CRCL DRUG DOSING (CG) 97.08 mL/min; PROTEIN TOTAL,TP 7.2 g/dL (6.4-8.2)
[2023-01-03] MEDS: Sodium Chloride 0.9% 10 ML Syringe FLUSH PRN (19:58)
[2023-01-03] MEDS: Morphine 2 MG/ML SYRINGE IVPUSH ONE (19:59)
[2023-01-03] MEDS: Folic Acid 1 MG Tab PO ONE (20:10)
[2023-01-03] MEDS: Thiamine 100 MG in Sodium Chloride 0.9% 100 ML IV ONE (20:11)
[2023-01-03] MEDS: Magnesium Sulfate/Water 2 GM in Premix Bag 1 BAG IV ONE (20:48)
[2023-01-03] MEDS: Take Home: Ondansetron 4 MG Tab.DIS, 5 Tab Pack PO ONE (22:53)
== END 2023-01-03 23:05 | disposition home or self-care (01) ==
LOC: LL.ED 19:02
DX: E86.0 Dehydration (principal)
CPT/HCPCS: 36415; 80053; 85025; 96365; 96366; 96367; 96375; 99284; 99284-25; A9270-GY; J2270; J2405; J3411; J3475; J3490; J7030; Q0162

== ENCOUNTER 2023-01-10 19:42 | Emergency (ER) | payer BC ==
[2023-01-10] MEDS ORDERED: Ondansetron 4 MG/2 ML SDV IVPUSH PRN (19:44)
[2023-01-10] MEDS ORDERED: Sodium Chloride 0.9% 10 ML Syringe FLUSH PRN (19:44)
[2023-01-10] MEDS ORDERED: Sodium Chloride 0.9% 1,000 ML IV ONE (19:44)
[2023-01-10] MEDS ORDERED: cefTRIAXone 2 GM in Sodium Chloride 0.9% 100 ML IV ONE (19:52)
[2023-01-10] MEDS ORDERED: Take Home: Ondansetron 4 MG Tab.DIS, 5 Tab Pack PO ONE (19:53)
[2023-01-10 20:00] LABS: BASOPHILS ABSOLUTE AUTO 0.07 K/uL (0.00-0.20); BASOPHILS PERCENT AUTO 0.9 % (0.0-2.0); EOSINOPHILS ABSOLUTE AUTO 0.18 K/uL (0.00-0.50); EOSINOPHILS PERCENT AUTO 2.4 % (0.0-5.0); HEMATOCRIT 46.8 % (39.0-49.0); HEMOGLOBIN 16.1 g/dL (13.1-16.8); LYMPHOCYTES ABSOLUTE AUTO 2.93 K/uL (0.50-3.50); LYMPHOCYTES PERCENT AUTO 38.8 % (10.0-50.0); MEAN CORPUSCULAR HGB CONC 34.4 g/dL (31.7-36.0); MONOCYTES ABSOLUTE AUTO 0.62 K/uL (0.00-1.00); MONOCYTES PERCENT AUTO 8.2 % (2.0-14.0); NEUTROPHILS ABSOLUTE AUTO 3.75 K/uL (1.40-7.00); NEUTROPHILS PERCENT AUTO 49.7 % (45.0-80.0); PLATELET COUNT,PLT 225 K/uL (150-350); RED CELL DISTRIBUTION WIDTH 12.8 % (11.2-14.1); WHITE BLOOD CELL COUNT,WBC 7.6 K/uL (4.0-10.2)
[2023-01-10] MEDS ORDERED: Pantoprazole 40 MG Vial IVPUSH ONE (20:05)
[2023-01-10 20:14] LABS: ANION GAP 14.7 meq/L (7-15); BILIRUBIN TOTAL 0.2 mg/dL (0.2-1.0); CALCIUM 8.8 mg/dL (8.5-10.1); CARBON DIOXIDE,CO2 23.3 mmol/L (21.0-32.0); CREATININE 0.98 mg/dL (0.51-1.17); EST CRCL DRUG DOSING (CG) 105.01 mL/min; POTASSIUM,K 3.9 mmol/L (3.5-5.1); PROTEIN TOTAL,TP 7.3 g/dL (6.4-8.2)
[2023-01-10] MEDS ORDERED: Pantoprazole 40 MG Vial ONE (20:16)
== END 2023-01-10 21:08 | disposition home or self-care (01) ==
LOC: LL.ED 19:42
DX: E86.0 Dehydration (principal); F10.239 Alcohol dependence with withdrawal, unspecified; R11.2 Nausea with vomiting, unspecified; Z79.899 Other long term (current) drug therapy
CPT/HCPCS: 36415; 80053; 85025; 96361; 96374; 96375; 99284; 99284-25; C9113; J2405; J7030; Q0162

== ENCOUNTER 2023-02-26 09:11 | Emergency (ER) | payer BC | END 2023-02-26 10:45 | disposition home or self-care (01) | LOC: SUPCPDRO 09:11 → LL.ED 09:11 | DX: K52.9 Noninfective gastroenteritis and colitis, unspecified (principal); F17.210 Nicotine dependence, cigarettes, uncomplicated; Z79.899 Other long term (current) drug therapy | CPT/HCPCS: 99283 ==

== ENCOUNTER 2023-07-02 10:13 | Emergency (ER) | payer BC ==
[2023-07-02] MEDS ORDERED: Sodium Chloride 0.9% 10 ML Syringe FLUSH PRN (10:24)
[2023-07-02] MEDS ORDERED: Pantoprazole 40 MG Vial IVPUSH ONE (10:31)
[2023-07-02] MEDS ORDERED: Ondansetron 4 MG/2 ML SDV IVPUSH ONE (10:31)
[2023-07-02 10:43] LABS: BASOPHILS ABSOLUTE AUTO 0.08 K/uL (0.00-0.20); EOSINOPHILS ABSOLUTE AUTO 0.12 K/uL (0.00-0.50); EOSINOPHILS PERCENT AUTO 1.4 % (0.0-5.0); HEMATOCRIT 52.5 % (39.0-49.0); LYMPHOCYTES ABSOLUTE AUTO 1.97 K/uL (0.50-3.50); LYMPHOCYTES PERCENT AUTO 23.6 % (10.0-50.0); MEAN CORPUSCULAR HEMOGLOBIN 30.7 pg (28.2-33.3); MEAN CORPUSCULAR HGB CONC 34.7 g/dL (31.7-36.0); MEAN CORPUSCULAR VOLUME 88.5 fL (84.0-98.0); MONOCYTES ABSOLUTE AUTO 0.83 K/uL (0.00-1.00); NEUTROPHILS ABSOLUTE AUTO 5.33 K/uL (1.40-7.00); PLATELET COUNT,PLT 229 K/uL (150-350); RED BLOOD CELL COUNT 5.93 M/uL (4.33-5.41); RED CELL DISTRIBUTION WIDTH 13.1 % (11.2-14.1); WHITE BLOOD CELL COUNT,WBC 8.3 K/uL (4.0-10.2)
[2023-07-02] MEDS ORDERED: Sodium Chloride 0.9% 1,000 ML IV ONE ×2 (10:46→12:47)
[2023-07-02 10:47] LABS: HEMOGLOBIN 18.2 g/dL (13.1-16.8)
[2023-07-02] MEDS ORDERED: methylPREDNISolone Sodium Succinate 40 MG/1 ML SDV IVPUSH ONE (10:49)
[2023-07-02] MEDS ORDERED: Albuterol 6.7 GM Inhaler INH ONE (10:49)
[2023-07-02] MEDS ORDERED: Benzonatate 100 MG Cap PO ONE (10:49)
[2023-07-02 11:04] LABS: ALANINE AMINOTRANSFERASE,ALT 74 U/L (12-78); ALBUMIN 4.1 g/dL (3.4-5.0); ALKALINE PHOSPHATASE 88 IU/L (46-116); ANION GAP 11.1 meq/L (7-15); ASPARTATE AMNIOTRANSFERASE,AST 51 U/L (15-37); BILIRUBIN TOTAL 0.8 mg/dL (0.2-1.0); BLOOD UREA NITROGEN,BUN 24 mg/dL (7-18); CALCIUM 8.9 mg/dL (8.5-10.1); CARBON DIOXIDE,CO2 27.9 mmol/L (21.0-32.0); CHLORIDE,CL 103 mmol/L (98-107); CREATININE 1.35 mg/dL (0.51-1.17); ETHANOL BLOOD MEDICAL 0.047 g/dL (0.000-0.080); GLUCOSE RANDOM 115 mg/dL (70-99); MAGNESIUM 1.9 mg/dL (1.8-2.4); PROTEIN TOTAL,TP 7.4 g/dL (6.4-8.2); SODIUM,NA 142 mmol/L (136-145)
[2023-07-02 11:06] LABS: ESTIMATED GFR 68 mL/min (>=60)
[2023-07-02 11:19] LABS: CORONAVIRUS COVID-19 NAA NEGATIVE (NEGATIVE); INFLUENZA A NAA NEGATIVE (NEGATIVE); INFLUENZA B NAA NEGATIVE (NEGATIVE); RESPIRATORY SYNCYTIAL VIR NAA NEGATIVE (NEGATIVE)
[2023-07-02] MEDS ORDERED: Ketorolac 15 MG/ML SDV IVPUSH ONE (11:53)
[2023-07-02 12:23] LABS: APPEARANCE,URINE CLEAR; BILIRUBIN,URINE MODERATE (NEGATIVE); COLOR,URINE DARK YELLOW; GLUCOSE,URINE NEGATIVE (NEGATIVE); KETONES,URINE NEGATIVE (NEGATIVE); LEUKOCYTE ESTERASE,URINE TRACE (NEGATIVE); NITRITE,URINE NEGATIVE (NEGATIVE); OCCULT BLOOD,URINE NEGATIVE (NEGATIVE); PROTEIN,URINE 30 mg/dL (NEGATIVE); UROBILINOGEN,URINE 0.2 E.U./dL (0.2-1.0)
[2023-07-02 12:32] LABS: BACTERIA,URINE FEW /HPF (NONE TO FEW); RBC,URINE 0-5 /HPF
[2023-07-02 12:36] LABS: AMPHETAMINES SCREEN, URINE NEGATIVE (NEGATIVE); BARBITURATE SCREEN,URINE NEGATIVE (NEGATIVE); BENZODIAZEPINES SCREEN,URINE NEGATIVE (NEGATIVE); BUPRENORPHINE SCREEN,URINE NEGATIVE (NEGATIVE); COCAINE METABOLITES,URINE NEGATIVE (NEGATIVE); EDDP,URINE SCREEN NEGATIVE (NEGATIVE); METHAMPHETAMINES SCREEN, URINE NEGATIVE (NEGATIVE); OXYCODONE SCREEN,URINE NEGATIVE (NEGATIVE); TCA SCREEN,URINE NEGATIVE (NEGATIVE); THC SCREEN,URINE 50 NG/ML NEGATIVE (NEGATIVE)
[2023-07-02] MEDS ORDERED: Lactated Ringers 1,000 ML IV SCH (12:45)
[2023-07-02 13:46] VITALS: BP 132/88; PULSE 67
== END 2023-07-02 14:20 | disposition home or self-care (01) ==
LOC: LL.ED 10:13
DX: E86.0 Dehydration (principal); R05.9 Cough, unspecified; R10.13 Epigastric pain; Z20.822 Contact with and (suspected) exposure to COVID-19; Z79.899 Other long term (current) drug therapy
CPT/HCPCS: 0241U; 36415; 71046; 74019; 80053; 80305-QW; 80307; 81001; 83605; 83735; 85025; 87086; 96361; 96374; 96375; 99284-25; A9270-GY; C9113; J1885; J2405; J2920; J7030; J7120

== ENCOUNTER 2025-05-02 09:04 | Emergency (ER) | payer BC ==
[2025-05-02] MEDS: Sodium Chloride 0.9% 10 ML Syringe FLUSH PRN (09:34)
[2025-05-02] MEDS: Ondansetron 4 MG/2 ML SDV IVPUSH ONE (09:41)
[2025-05-02 09:43] LABS: BASOPHILS ABSOLUTE AUTO 0.07 K/uL (0.00-0.20); BASOPHILS PERCENT AUTO 1.0 % (0.0-2.0); EOSINOPHILS ABSOLUTE AUTO 0.09 K/uL (0.00-0.50); EOSINOPHILS PERCENT AUTO 1.3 % (0.0-5.0); IMMATURE GRAN ABSOLUTE AUTO 0.04 10^3/uL (0.00-0.04); IMMATURE GRAN PERCENT AUTO 0.6 % (0.0-0.4); LYMPHOCYTES ABSOLUTE AUTO 1.63 K/uL (0.50-3.50); LYMPHOCYTES PERCENT AUTO 23.7 % (10.0-50.0); MONOCYTES ABSOLUTE AUTO 0.61 K/uL (0.00-1.00); MONOCYTES PERCENT AUTO 8.9 % (2.0-14.0); NEUTROPHILS ABSOLUTE AUTO 4.45 K/uL (1.40-7.00); NEUTROPHILS PERCENT AUTO 64.5 % (45.0-80.0); PLATELET COUNT,PLT 240 K/uL (150-350); RED BLOOD CELL COUNT 5.67 M/uL (4.33-5.41); RED CELL DISTRIBUTION WIDTH 11.7 % (11.2-14.1); WHITE BLOOD CELL COUNT,WBC 6.9 K/uL (4.0-10.2)
[2025-05-02] MEDS: Lactated Ringers 1,000 ML IV SCH ×2 (09:47→11:08)
[2025-05-02 10:05] LABS: ALANINE AMINOTRANSFERASE,ALT 114 U/L (12-78); ASPARTATE AMNIOTRANSFERASE,AST 53 U/L (15-37); BILIRUBIN TOTAL 0.7 mg/dL (0.2-1.0); BLOOD UREA NITROGEN,BUN 27 mg/dL (7-18); CARBON DIOXIDE,CO2 26.1 mmol/L (21.0-32.0); CHLORIDE,CL 103 mmol/L (98-107); CREATININE 1.25 mg/dL (0.51-1.17); ETHANOL BLOOD MEDICAL 0.106 g/dL (0.000-0.080); GLUCOSE RANDOM 109 mg/dL (70-99); POTASSIUM,K 4.2 mmol/L (3.5-5.1); PROTEIN TOTAL,TP 6.9 g/dL (6.4-8.2); SODIUM,NA 143 mmol/L (136-145)
[2025-05-02 10:08] LABS: ESTIMATED GFR 73 mL/min (>=60); LACTIC ACID 3.2 mmol/L (0.4-2.0)
[2025-05-02] MEDS ORDERED: Lactated Ringers 1,000 ML IV SCH (10:15)
== END 2025-05-02 13:00 | disposition home or self-care (01) ==
LOC: LL.ED 09:04
DX: K29.70 Gastritis, unspecified, without bleeding (principal); F17.200 Nicotine dependence, unspecified, uncomplicated; Z79.899 Other long term (current) drug therapy
CPT/HCPCS: 36415; 80053; 80307; 82150; 83605; 83690; 83735; 85025; 86140; 87428; 96361; 96374; 96375; 99284; J2405; J2470; J7120